=== PATIENT | male | born 1980 | race Caucasian/White ===

== ENCOUNTER 2021-10-14 00:22 | Emergency (ER) | payer OTHER, MEDICAID, SELFPAY ==
[2021-10-14 00:37] VITALS: BP 106/69; PULSE 80; RESP 17; TEMP 36.9; O2SAT 96; BMI 37.8
== END 2021-10-14 00:43 | disposition left against medical advice (07) ==
PROVIDERS: Emergency Provider Emergency Medicine
CPT/HCPCS: 99281